=== PATIENT | female | born 1970 | race Caucasian/White ===

== ENCOUNTER 2018-06-26 02:09 | Emergency (ER) | payer BC, OTHER ==
[2018-06-26 02:34] LABS: Bilirubin Negative (Negative); Blood, Urine Trace (Negative); Clarity CLOUDY (Clear); Glucose, Urine (Dipstick) Negative (Negative); Leukocyte Negative (Negative); Nitrite Negative (Negative); Protein, Urine (Dipstick) Negative (Neg-Trace); Specific Gravity, Urine 1.021 (1.002-1.036); Urobilinogen 0.2 mg/dL (0.2-1.0)
[2018-06-26 02:36] LABS: Bacteria/HPF Rare-Few HPF (None Seen); Hyaline Casts/LPF 0-3 HYALINE CAST LPF (0-3 Hyaline); RBC/HPF 0-3 HPF (0-3); WBC/HPF 0-3 HPF (0-3)
[2018-06-26 02:36] LABS: #Basophils 0.1 thou/uL (0.0-0.2); #Eosinphils 0.2 thou/uL (0.0-0.7); #Lymphocytes 3.1 thou/uL (1.20-3.40); #Monocytes 0.5 thou/uL (0.11-0.59); #Neutrophils 3.3 thou/uL (1.40-6.50); %Basophils 1.1 % (0.0-1.0); %Eosinophils 3.2 % (0.0-10.0); %Lymphocytes 42.8 % (21.0-51.0); %Monocytes 7.2 % (0.0-10.0); %Neutrophils 45.6 % (42.0-75.0); Hemoglobin 14.1 g/dL (12.0-16.0); Mean Corpuscular HGB CONC 33.6 g/dL (32.0-36.0); Mean Corpuscular Hemoglobin 31.4 pg (27.0-31.0); Mean Corpuscular Volume 93.4 fL (78.0-98.0); Platelet Count 347 thou/uL (130-400); RBC Distribution Width 11.8 % (11.5-14.5); White Blood Cell (WBC) Count 7.2 thou/uL (4.8-10.8)
[2018-06-26 02:46] LABS: Yeast-All Forms Rare HPF (None Seen)
[2018-06-26 02:58] LABS: ALT (SGPT) 13 U/L (8-55); AST (SGOT) 19 U/L (5-34); Albumin 4.5 g/dL (3.5-5.0); Alkaline Phosphatase 106 U/L (40-150); Anion Gap 13 mmol/L (10-20); BUN (Urea Nitrogen) 12 mg/dL (7.0-18.7); Bilirubin, Total 0.4 mg/dL (0.2-1.2); Calc. Creatinine Clearance 0 mL/min (70-130); Calcium 9.8 mg/dL (7.8-10.44); Carbon Dioxide 26 mmol/L (22-29); Chloride 106 mmol/L (98-107); Estimated GFR-MDRD 80; Glucose 86 mg/dL (70-105); Potassium 3.6 mmol/L (3.5-5.1); Protein, Total 7.5 g/dL (6.0-8.3); Sodium 141 mmol/L (136-145)
[2018-06-26] MEDS ORDERED: Ketorolac Tromethamine 30 MG/ML VIAL ONE (03:42)
[2018-06-26] MEDS ORDERED: Fentanyl 100 MCG/2 ML VIAL ONE (03:42)
[2018-06-26] MEDS ORDERED: Ondansetron HCl/PF 4 MG/2 ML Vial ONE (03:42)
--- NOTE | 2018-06-26 12:17 | CT ---
PRELIMINARY REPORT/[facility]/EMERGENCY AFTER HOURS PROCEDURE: EXAM: CT Abdomen and Pelvis Without Intravenous Contrast CLINICAL HISTORY: 47 years old, female; Pain; Abdominal pain; Flank; Right; Patient HX: 47 yo f presents to ed with rig ht flank pain. Pt reports constant right flank pain that started around 11 pm last night when she was trying to go to bed. Pt reports similar pain with HX of ulcers two years ago TECHNIQUE: Axial computed tomography images of the abdomen and pelvis without intravenous contrast. Coronal reformatted images were created and reviewed. COMPARISON: No relevant prior studies available. FINDINGS: Lung bases: No acute findings. No mass. No consolidation. ABDOMEN: Liver: No mass. Gallbladder and bile ducts: Gallbladder is somewhat distended. No calcified stones. No biliary dilati on. Pancreas: No ductal dilation. No mass. Spleen: No mass. Adrenals: No mass. Kidneys and ureters: No obstructing stones. No hydronephrosis. Small left renal cortical cyst. Stomach and bowel: Fecal loading. Diverticulosis. No evidence of bowel obstruction. PELVIS: Appendix: Normal appendix. Bladder: The bladder is decompressed. No stones. Reproductive: No acute findings. ABDOMEN and PELVIS: Intraperitoneal space: No acute findings. No free air. No significant fluid collection. Bones/joints: No acute fracture. Soft tissues: No acute findings. Vasculature: No acute findings. No abdominal aortic aneurysm. Lymph nodes: No lymphadenopathy. IMPRESSION: No acute findings. Constipation. Somewhat distended gallbladder; further evaluation can be performed with ultrasound if indicated. Thank you for allowing us to participate in the care of your patient. Dictated and Authenticated by: Kain Benson MD 06/26/2018 4:48 AM Central Time ([place] & [place]) FINAL REPORT EMERGENT AFTER HOURS NONCONTRASTED CT ABDOMEN AND PELVIS: 06/26/2018 HISTORY: Right flank pain that started at 22 hours. Nausea. COMPARISON: 01/22/2016 FINDINGS: IMPRESSION: 1. No renal or ureteral calculi are seen bilaterally, and there is no hydronephrosis. 2. Difficult to characterize hypodense lesion, superior pole left kidney, stable from prior examinat ion and likely representing a renal cyst. 3. No CT evidence of appendicitis. 4. Evidence of bilateral tubal ligation. 5. Colonic diverticulosis. Small amount of retained fecal material seen throughout the colon, sugge sting an element of constipation. 6. Mild distention of the gallbladder. 7. No acute findings seen in the abdomen or pelvis. The findings are in agreement with the preliminary report by [facility]. POS: ERVIN
--- NOTE | 2018-06-26 12:19 | ULT ---
PRELIMINARY REPORT/[facility]/EMERGENCY AFTER HOURS PROCEDURE: EXAM: US Abdomen Limited, Right Upper Quadrant EXAM DATE/TIME: 06/26/2018 5:10 AM CLINICAL HISTORY: 47 years old, female; Pain and signs and symptoms; Nausea; Abdominal pain; Other: RT sided back pain TECHNIQUE: Real-time ultrasound of the abdomen with image documentation. Examination is focused on the right upper quadrant. COMPARISON: CT Stone Protocol 06/26/2018 3:34 AM FINDINGS: Liver: The liver demonstrates increased echogenicity which is consistent with fatty infiltration. Portal venous: Hepatopetal flow is demonstrated in the main portal vein. Gallbladder: The gallbladder is distended with anechoic fluid. There is a small amount of pericholecy stic fluid. Negative Natarajan's sign was reported by the podiatrist assistant. Common bile duct: The extrahepatic bile duct diameter is 5 mm. Pancreas: The visible portion of the pancreas is unremarkable. The pancreas is partially obscured by bowel gas. Right kidney: The right kidney measures 10.1 x 4.5 x 4.1 cm. IMPRESSION: Distended gallbladder with pericholecystic fluid. No gallstones identified. Thank you for allowing us to participate in the care of your patient. Dictated and Authenticated by: Ovidio Menjivar MD 06/26/2018 6:09 AM Central Time ([place] & [place]) FINAL REPORT EMERGENT AFTER HOURS RIGHT UPPER QUADRANT ULTRASOUND: 06/26/2018 HISTORY: Right flank pain. Nausea. Recent CT scan noted distention of the gallbladder. IMPRESSION: There is mild distention of the gallbladder, but no gallbladder calculi are seen. There is a minimal focus of pericholecystic fluid, which is nonspecific. No gallbladder wall thickening is present. Normal caliber common duct, measuring 0.5 cm in diameter. Mild fatty infiltration of the liver. Findings are in agreement with the preliminary report by [facility]. POS: ERVIN
== END 2018-06-26 05:47 | disposition home or self-care (01) ==
LOC: ERS 02:09
DX: K82.8 Other specified diseases of gallbladder (principal); I25.10 Atherosclerotic heart disease of native coronary artery without angina pectoris; E78.5 Hyperlipidemia, unspecified; F41.9 Anxiety disorder, unspecified; Z87.891 Personal history of nicotine dependence; Z79.899 Other long term (current) drug therapy
CPT/HCPCS: 36415; 74176; 76705; 80053; 81003; 81015; 83690; 85025; 96361; 96374; 96375; J1885; J2405; J3010

== ENCOUNTER 2018-07-19 07:36 | Outpatient (CLI) | payer BC ==
--- NOTE | 2018-07-19 13:22 | NM ---
RADIONUCLIDE HEPATOBILIARY SCAN WITH GALLBLADDER EJECTION FRACTION: HISTORY: Abdominal pain. Biliary colic. FATTY MEAL: Eight ounces Ensure. FINDINGS: Early images show physiologic uptake of radiotracer throughout the hepatic parenchyma. gallbladder f irst visualized at 25 minutes. Uptake within the small bowel at 5 minutes. After administration of fatty meal, there is some excretion of radiotracer from the gallbladder to the small bowel. Ejection fraction calculated at 40%. IMPRESSION: 1. No evidence of biliary obstruction. 2. Borderline ejection fraction gallbladder at 40%. POS: ERVIN
== END 2018-07-19 07:37 | disposition home or self-care (01) ==
LOC: NM 07:36
PROVIDERS: ATTEND Specialist
DX: R14.0 Abdominal distension (gaseous) (principal)
CPT/HCPCS: 78227; A9537

== ENCOUNTER 2020-07-14 13:12 | Outpatient (CLI) | payer BC ==
--- NOTE | 2020-07-14 15:04 | CT ---
CT ABDOMEN AND PELVIS WITH IV CONTRAST: 07/14/20 HISTORY: Diverticulitis. Epigastric and lower abdominal pain. FINDINGS: Comparison is made with the CT stone protocol of 06/26/18. The lung bases are clear. The liver, spleen, pancreas, adrenal glands, and right kidney are normal. T here are cysts in the left kidney. No calcified gallstones are seen. The small bowel loops are not abnormally dilated. A normal appearing appendix is present. There is si gmoid diverticulosis. There is thickening in the wall of the sigmoid colon with mild pericolonic infl ammatory changes. No free air, free fluid or lymphadenopathy is seen in the abdomen or pelvis. There is no evidence of aneurysmal dilatation of the abdominal aorta. There are degenerative changes in the spine. The uterus is present. There are postop changes of bilateral tubal ligation. No definite loculated fluid collec tion is seen to suggest abscess formation. IMPRESSION: Sigmoid diverticulosis with diverticulitis. POS: OFF
== END 2020-07-14 13:13 | disposition home or self-care (01) ==
LOC: SCSCT 13:12
PROVIDERS: ATTEND Physician Assistant Medical
DX: R10.9 Unspecified abdominal pain (principal); R19.4 Change in bowel habit; K92.1 Melena; K57.30 Diverticulosis of large intestine without perforation or abscess without bleeding; K57.92 Diverticulitis of intestine, part unspecified, without perforation or abscess without bleeding
CPT/HCPCS: 74177

== ENCOUNTER 2023-11-06 07:55 | Outpatient (CLI) | payer BC | END 2023-11-06 07:56 | disposition home or self-care (01) | LOC: SCSMRI 07:55 | PROVIDERS: ATTEND Physician Assistant Medical | DX: K83.8 Other specified diseases of biliary tract (principal); K57.10 Diverticulosis of small intestine without perforation or abscess without bleeding | CPT/HCPCS: 74183 ==

== ENCOUNTER 2024-02-13 13:34 | Outpatient (CLI) | payer BC | END 2024-02-13 13:35 | disposition home or self-care (01) | LOC: NM 13:34 | PROVIDERS: ATTEND Internal Medicine Gastroenterology | DX: K83.8 Other specified diseases of biliary tract (principal); R10.11 Right upper quadrant pain | CPT/HCPCS: 78227; A9537 ==

== ENCOUNTER 2024-03-01 08:25 | Outpatient (CLI) | payer BC | END 2024-03-01 08:26 | disposition home or self-care (01) | LOC: BICMAMMO 08:25 | PROVIDERS: ATTEND Obstetrics & Gynecology | DX: Z12.31 Encounter for screening mammogram for malignant neoplasm of breast (principal); Z98.890 Other specified postprocedural states | CPT/HCPCS: 77063; 77067 ==